=== PATIENT | male | born 2000 | race Caucasian/White ===

== ENCOUNTER 2022-07-15 08:36 | Emergency (ER) | payer SELFPAY ==
--- NOTE | 2022-07-15 08:47 | XR_ITS ---
FINAL REPORT CLINICAL HISTORY: rolled it playing volleyball FINDINGS: RIGHT ANKLE 3 views of the right ankle were obtained. There is no acute fracture or dislocation. The joint spaces are intact. There is lateral soft tissue swelling. IMPRESSION: Lateral soft tissue swelling with no acute bony abnormality. Reviewed, Interpreted and Dictated by Benigno Bowen III, MD Transcribed by Alia Sol Authenticated and [facility]
--- NOTE | 2022-07-15 08:47 | XR_ITS ---
FINAL REPORT CLINICAL HISTORY: rolled it playing volleyball FINDINGS: RIGHT FOOT Three views of the right foot demonstrate no acute fracture or dislocation. The visualized joint spaces are normally aligned. The soft tissues are unremarkable. IMPRESSION: No acute bony abnormality. Reviewed, Interpreted and Dictated by Benigno Bowen III, MD Transcribed by Alia Sol Authenticated and [facility]
[2022-07-15 09:10] VITALS: BP 131/86; PULSE 86; RESP 19; TEMP 36.8; O2SAT 97; BMI 30.2
--- NOTE | 2022-07-15 09:27 | EXP.UTC ---
Discharge Plan Disposition Patient Disposition: Home, Self-Care Condition: Good Prescriptions Prescriptions: No Action No Known Home Medications Referrals Follow up/Referrals: Eddie Owens MD [Staff Physician] - See instructions Provider,MD Kylee [Primary Care Provider] - See instructions Activity Restrictions/Add. Instructions Additional Instructions/Restrictions: *non weight bearing *RICE, Rest the extremity, Ice 15-20 minutes 3-4 times daily, Compress- wear the emory wrap as discussed as much as possible to help reduce swelling and pain, Elevate the extremity when at rest *Emory wrap/Walking boot is for support and help control swelling, use it except in the shower. Be sure that is not to tight but not to loose either *Elevate when resting? *Ibuprofen 600-800mg every 6-8 hours as needed for pain an inflammation. If need something more can take Tylenol in between doses of Ibuprofen to help Immediately follow up with your family doctor for new or worsening of symptoms, or no noticeable improvement over the next 3-5 days Call and makel appointement with Dr [facility] for further treatment and evaluation You may Call back to the [facility] later today for the official reading of your xray Follow up with your Family Doctor if no improvement or any worsening of symptoms Clinical Impressions Clinical Impression: Ankle sprain Instructions Patient Instructions: How to Use Crutches, How To Perform RICE (Rest, Ice, Compress, Elevate), Ibuprofen Discharge ED Provider: Jill Pettit [facility] HPI General Stated complaint: RT foot pain, AO volleyball @ home 07/14/22 Mode of Arrival: Ambulatory Source of Information: Patient Limitations: No Limitations Time Seen by Provider: 07/15/22 09:27 Description of Symptoms (Recalled from Triage Doc. by RN): PATIENT C/O INJURY TO RIGHT ANKLE. HE REPORTS HE ROLLED IT WHILE PLAYING VOLLEYBALL YESTERDAY HEENT Symptoms (Recalled from RN notes): No Resp Symptoms (Recalled from RN notes): No Skin Symptoms (Recalled from RN notes): No MS Symptoms (Recalled from RN notes): Yes Functional Status (Recalled from RN notes): WNL History of Present Illness Provider Complaint: Patient states that he was playing volley ball yesterday and he came down on another players foot and rolled his right ankle States that he has been having pain and swelling in the right ankle ever since State that this morning it was still hurting so he came in to get it checked out Related Data Home Medications Medication Instructions Recorded Confirmed No Known Home Medications 07/15/22 07/15/22 Allergies Allergy/AdvReac Type Severity Reaction Status Date / Time No Known Allergies Allergy Verified 07/15/22 09:21 Worker's Comp Is this a Worker's Comp case?: No PFSH PFSH Social History (Updated 07/15/22 @ 09:19 by Yane Carrion RN) Smoking Status: Current every day smoker alcohol intake: never current occupational status: employed ROS Obtained: Yes All systems reviewed & no additional complaints except as documented and Yes Systems reviewed as appropriate & no additional complaints except as documented ENT Ears, Nose, Mouth, and Throat: Reports system reviewed and no additional complaints, except as documented and Reports as per HPI Cardiovascular Cardiovascular: Reports system reviewed and no additional complaints, except as documented and Reports as per HPI Respiratory Respiratory: Reports system reviewed and no additional complaints, except as documented and Reports as per HPI Musculoskeletal Musculoskeletal: Reports system reviewed and no additional complaints, except as documented Comments: Pain and swelling in right ankle after rolling it yesterday playing volley ball Physical Exam General General appearance: alert and in no apparent distress Respiratory Respiratory exam: Present normal lung sounds bilaterally and respiratory distress Cardiovascular Cardiovascular exam
[2022-07-15 09:38] VITALS: BP 131/86; PULSE 86; RESP 19; TEMP 36.8; O2SAT 97
== END 2022-07-15 10:59 | disposition home or self-care (01) ==
PROVIDERS: Emergency Provider Nurse Practitioner
DX: S93.401A Sprain of unspecified ligament of right ankle, initial encounter (principal); Y93.68 Activity, volleyball (beach) (court)
CPT/HCPCS: 73600; 73630; 99213; G0463